=== PATIENT | female | born 1975 | race Caucasian/White ===

== ENCOUNTER 2018-01-17 17:28 | Emergency (ER) | payer OTHER ==
[~2018-01-17] VITALS: Ht 172.7 cm; Wt 131.5 kg
[~2018-01-17 17:28] MED LIST: JANUMET 50-5001 EACH PO; PATANOL5 ML OPHTHALMIC; PROAIR HFA8.5 GM
[2018-01-17] MEDS ORDERED: PREDNISONE 20 M20 MG PO (17:57)
[2018-01-17] MEDS ORDERED: ALBUTEROL2.5 MG/31 INH (17:57)
[2018-01-17] MEDS ORDERED: PROAIR HFA8.5 GM INH (17:57)
[2018-01-17 18:07] VITALS: BP 181/73
== END 2018-01-17 18:08 | disposition home or self-care (01) ==
LOC: M.ERS 17:28
DX: J45.909 Unspecified asthma, uncomplicated (principal); R03.0 Elevated blood-pressure reading, without diagnosis of hypertension; E11.9 Type 2 diabetes mellitus without complications; Z90.710 Acquired absence of both cervix and uterus

== ENCOUNTER 2018-01-25 14:47 | Emergency (ER) | payer OTHER ==
[~2018-01-25] VITALS: Ht 172.7 cm; Wt 131.5 kg
[~2018-01-25 14:47] MED LIST changes: +ALBUTEROL2.5 MG/31 INH; +PREDNISONE 20 M20 MG PO; +PROAIR HFA8.5 GM INH
[2018-01-25] MEDS ORDERED: PROAIR HFA8.5 GM INH (15:02)
[2018-01-25 15:18] LABS: URINE BILIRUBIN NEGATIVE (Negative); URINE BLOOD NEGATIVE (Negative); URINE CLARITY CLEAR; URINE COLOR YELLOW; URINE GLUCOSE-RANDOM NEGATIVE (Negative); URINE KETONES NEGATIVE (Negative); URINE LEUKOCYTES-REFLEX NEGATIVE (Negative); URINE NITRITE-REFLEX NEGATIVE (Negative); URINE PROTEIN NEGATIVE (Negative); URINE SPECIFIC GRAVITY >= 1.030 (1.005-1.030); URINE UROBILINOGEN 0.2 E.U./dl (0.2-1.0)
[2018-01-25 15:45] LABS: ABSOLUTE BASOPHILS 0.1 thou/uL (0.0-0.2); ABSOLUTE EOSINOPHILS 0.2 thou/uL (0.0-0.7); ABSOLUTE LYMPHOCYTES 2.6 thou/uL (0.8-5.3); ABSOLUTE MONOCYTES 0.6 thou/uL (0.0-1.2); BASOPHILS 0.9 %; EOSINOPHILS 3.2 %; HEMATOCRIT 41.5 % (37.0-47.0); HEMOGLOBIN 14.3 gm/dL (12.0-15.0); LYMPHOCYTES 34.6 %; MCH 30.4 pg (26.0-34.0); MCHC 34.4 g/dL (28.0-37.0); MCV 88.2 fL (80.0-100.0); MONOCYTES 8.1 %; MPV 8.8 fl. (7.2-11.1); NUCLEATED RBCS 0 /100WBC; PLATELET COUNT* 218 thou/uL (150-400); POLYS 53.2 %; RDW-CV 12.7 % (10.5-14.5); WBC 7.5 thou/uL (4.0-11.0)
[2018-01-25 15:52] LABS: CALCIUM 8.3 mg/dL (8.5-10.1); CREATININE 0.9 mg/dL (0.6-1.3); POTASSIUM 3.8 mmol/L (3.5-5.1)
[2018-01-25 15:57] LABS: ALBUMIN 3.1 g/dL (3.4-5.0); TOTAL BILIRUBIN 0.2 mg/dL (<0.1-1.0); TOTAL PROTEIN 6.5 g/dL (6.4-8.2)
[2018-01-25] MEDS ORDERED: CIPRO500 MG PO (16:17)
[2018-01-25] MEDS ORDERED: FLAGYL500 MG PO (16:17)
[2018-01-25 16:32] VITALS: BP 155/83
== END 2018-01-25 16:33 | disposition home or self-care (01) ==
LOC: M.ERS 14:47
PROVIDERS: Nurse Practitioner Psychiatric/Mental Health
DX: R19.7 Diarrhea, unspecified (principal); J45.909 Unspecified asthma, uncomplicated; E11.9 Type 2 diabetes mellitus without complications; F17.200 Nicotine dependence, unspecified, uncomplicated; Z90.710 Acquired absence of both cervix and uterus

== ENCOUNTER 2018-06-04 22:21 | Emergency (ER) | payer OTHER ==
[~2018-06-04] VITALS: Ht 172.7 cm; Wt 127.0 kg
[~2018-06-04 22:21] MED LIST changes: +CIPRO500 MG PO; +FLAGYL500 MG PO
[2018-06-04] MEDS ORDERED: PROAIR HFA8.5 GM INH (23:08)
[2018-06-04] MEDS ORDERED: PREDNISONE50 MG PO (23:08)
[2018-06-04 23:18] VITALS: BP 103/91
== END 2018-06-04 23:19 | disposition home or self-care (01) ==
LOC: M.ERS 22:21
DX: J45.901 Unspecified asthma with (acute) exacerbation (principal); E11.9 Type 2 diabetes mellitus without complications; Z90.710 Acquired absence of both cervix and uterus

== ENCOUNTER 2018-07-12 07:48 | Emergency (ER) | payer OTHER ==
[~2018-07-12] VITALS: Ht 172.7 cm; Wt 127.0 kg
[~2018-07-12 07:48] MED LIST changes: +PREDNISONE50 MG PO
[2018-07-12] MEDS ORDERED: ALBUTEROL2.5 MG/31 INH (08:44)
[2018-07-12] MEDS ORDERED: PREDNISONE 20 M20 M1 PO (08:44)
[2018-07-12] MEDS ORDERED: AMOXICILLIN500 M1 PO (08:44)
[2018-07-12 09:02] VITALS: BP 163/100
== END 2018-07-12 09:02 | disposition home or self-care (01) ==
LOC: M.ERS 07:48
DX: J45.901 Unspecified asthma with (acute) exacerbation (principal); E11.9 Type 2 diabetes mellitus without complications; Z90.710 Acquired absence of both cervix and uterus

== ENCOUNTER 2018-09-19 03:10 | Emergency (ER) | payer OTHER ==
[~2018-09-19] VITALS: Ht 172.7 cm; Wt 145.2 kg
[~2018-09-19 03:10] MED LIST changes: +AMOXICILLIN500 M1 PO; +PREDNISONE 20 M20 M1 PO
[2018-09-19 03:15] VITALS: BP 162/102
[2018-09-19] MEDS ORDERED: SYMBICORT80 MCG/4.1 INH (03:20)
[2018-09-19] MEDS ORDERED: JANUMET 50-5001 EACH PO (03:21)
[2018-09-19] MEDS ORDERED: LEXAPRO 10 MG T10 M1 PO (03:22)
== END 2018-09-19 03:40 | disposition home or self-care (01) ==
LOC: M.ERS 03:10
DX: J06.9 Acute upper respiratory infection, unspecified (principal); J45.909 Unspecified asthma, uncomplicated; E11.9 Type 2 diabetes mellitus without complications; Z88.8 Allergy status to other drugs, medicaments and biological substances; Z90.710 Acquired absence of both cervix and uterus

== ENCOUNTER 2018-11-16 16:52 | Emergency (ER) | payer OTHER ==
[~2018-11-16] VITALS: Ht 172.7 cm; Wt 149.7 kg
[~2018-11-16 16:52] MED LIST changes: +LEXAPRO 10 MG T10 M1 PO; +SYMBICORT80 MCG/4.1 INH
[2018-11-16 18:41] LABS: INFLUENZA A ANTIGEN None Detected (None Detect); INFLUENZA B ANTIGEN None Detected (None Detect)
[2018-11-16] MEDS ORDERED: ALBUTEROL2.5 MG/31 INH (18:55)
[2018-11-16] MEDS ORDERED: ZPAK PO (18:55)
[2018-11-16] MEDS ORDERED: TESSALON PERLE100 MG PO (18:55)
[2018-11-16] MEDS ORDERED: MEDROLDOSEPACK PO (18:55)
[2018-11-16] MEDS ORDERED: PROMETH-CODEIN 65 ML PO (18:59)
[2018-11-16 19:14] VITALS: BP 160/105
== END 2018-11-16 19:20 | disposition home or self-care (01) ==
LOC: M.ERS 16:52
PROVIDERS: Nurse Practitioner Family
DX: J20.9 Acute bronchitis, unspecified (principal); E11.9 Type 2 diabetes mellitus without complications; J45.909 Unspecified asthma, uncomplicated; Z90.49 Acquired absence of other specified parts of digestive tract; Z90.710 Acquired absence of both cervix and uterus

== ENCOUNTER 2018-11-21 14:33 | Emergency (ER) | payer OTHER ==
[~2018-11-21] VITALS: Ht 172.7 cm; Wt 149.9 kg
[~2018-11-21 14:33] MED LIST changes: +MEDROLDOSEPACK PO; +PROMETH-CODEIN 65 ML PO; +TESSALON PERLE100 MG PO; +ZPAK PO
[2018-11-21 15:11] LABS: ABSOLUTE BASOPHILS 0.1 thou/uL (0.0-0.2); ABSOLUTE LYMPHOCYTES 1.9 thou/uL (0.8-5.3); ABSOLUTE MONOCYTES 0.5 thou/uL (0.0-1.2); ABSOLUTE NEUTROPHILS 7.5 thou/uL (1.6-8.1); EOSINOPHILS 0.5 %; HEMOGLOBIN 14.5 gm/dL (12.0-15.0); LYMPHOCYTES 18.9 %; MCHC 33.8 g/dL (28.0-37.0); MCV 91.9 fL (80.0-100.0); MONOCYTES 5.2 %; MPV 8.9 fl. (7.2-11.1); NUCLEATED RBCS 0 /100WBC; PLATELET COUNT* 270 thou/uL (150-400); POLYS 74.4 %; RBC 4.68 mil/uL (4.20-5.00); RDW-CV 12.7 % (10.5-14.5); WBC 10.1 thou/uL (4.0-11.0)
[2018-11-21 15:16] LABS: CALCIUM 8.9 mg/dL (8.5-10.1); CREATININE 1.1 mg/dL (0.6-1.3)
[2018-11-21 15:21] LABS: ALBUMIN 3.5 g/dL (3.4-5.0); TOTAL BILIRUBIN 0.3 mg/dL (<0.1-1.0); TOTAL PROTEIN 7.5 g/dL (6.4-8.2)
[2018-11-21 16:53] VITALS: BP 134/76
== END 2018-11-21 16:54 | disposition home or self-care (01) ==
LOC: M.ERS 14:33
PROVIDERS: Physician Assistant
DX: E11.65 Type 2 diabetes mellitus with hyperglycemia (principal); J02.9 Acute pharyngitis, unspecified; R06.02 Shortness of breath; J45.909 Unspecified asthma, uncomplicated; Z90.710 Acquired absence of both cervix and uterus; Z90.49 Acquired absence of other specified parts of digestive tract

== ENCOUNTER 2018-12-22 13:09 | Inpatient (IN) | payer OTHER ==
[~2018-12-22] VITALS: Ht 172.7 cm; Wt 149.7 kg
[2018-12-22 13:19] VITALS: BP 184/107
[2018-12-22 14:05] LABS: ABSOLUTE BASOPHILS 0.1 thou/uL (0.0-0.2); ABSOLUTE EOSINOPHILS 0.2 thou/uL (0.0-0.7); ABSOLUTE LYMPHOCYTES 2.7 thou/uL (0.8-5.3); ABSOLUTE MONOCYTES 0.6 thou/uL (0.0-1.2); ABSOLUTE NEUTROPHILS 4.5 thou/uL (1.6-8.1); EOSINOPHILS 1.9 %; LYMPHOCYTES 33.4 %; MCH 31.2 pg (26.0-34.0); MCHC 34.1 g/dL (28.0-37.0); MCV 91.4 fL (80.0-100.0); MONOCYTES 7.8 %; MPV 9.2 fl. (7.2-11.1); NUCLEATED RBCS 0 /100WBC; PLATELET COUNT* 246 thou/uL (150-400); POLYS 55.9 %; RBC 4.49 mil/uL (4.20-5.00); RDW-CV 12.8 % (10.5-14.5); WBC 8.1 thou/uL (4.0-11.0)
[2018-12-22 14:11] LABS: CALCIUM 8.8 mg/dL (8.5-10.1); POTASSIUM 3.7 mmol/L (3.5-5.1)
[2018-12-22 14:16] LABS: ALBUMIN 3.4 g/dL (3.4-5.0); TOTAL BILIRUBIN 0.2 mg/dL (<0.1-1.0)
[2018-12-22 15:36] VITALS: BP 149/78
[2018-12-22 15:47] VITALS: BP 157/87
[2018-12-22 20:45] VITALS: BP 129/47
[2018-12-23 04:13] LABS: HEMATOCRIT 40.2 % (37.0-47.0); HEMOGLOBIN 13.4 gm/dL (12.0-15.0); MCHC 33.3 g/dL (28.0-37.0); MCV 92.9 fL (80.0-100.0); MPV 9.1 fl. (7.2-11.1); RBC 4.33 mil/uL (4.20-5.00); RDW-CV 12.7 % (10.5-14.5); WBC 10.4 thou/uL (4.0-11.0)
[2018-12-23 04:23] LABS: CALCIUM 8.9 mg/dL (8.5-10.1); CREATININE 1.1 mg/dL (0.6-1.3)
[2018-12-23 04:24] LABS: POTASSIUM 4.7 mmol/L (3.5-5.1)
[2018-12-23 07:20] VITALS: BP 148/82
[2018-12-23 16:00] VITALS: BP 124/72
[2018-12-23 20:00] VITALS: BP 110/48
[2018-12-24 09:42] VITALS: BP 137/56
[2018-12-24] MEDS ORDERED: PREDNISONE 10 M10 MG PO (10:38)
[2018-12-24] MEDS ORDERED: SINGULAIR 10 MG10 M1 PO (10:39)
[2018-12-24] MEDS ORDERED: METFORMIN HCL500 MG PO (10:40)
[2018-12-24 10:41] VITALS: BP 137/56
[2018-12-24 11:38] VITALS: BP 137/56
== END 2018-12-24 11:36 | disposition home or self-care (01) | DRG 202 ==
LOC: M.ERS 13:09 → M.3W 15:06 → M.TBA-ER 15:06 → M.3W 15:46
PROVIDERS: Physician Assistant; ADMIT Internal Medicine
DX: J45.901 Unspecified asthma with (acute) exacerbation (principal); E87.1 Hypo-osmolality and hyponatremia; Z68.43 Body mass index [BMI] 50.0-59.9, adult; E66.01 Morbid (severe) obesity due to excess calories; E11.9 Type 2 diabetes mellitus without complications; Z90.710 Acquired absence of both cervix and uterus; Z90.49 Acquired absence of other specified parts of digestive tract; Z79.4 Long term (current) use of insulin; Z79.899 Other long term (current) drug therapy; Z83.3 Family history of diabetes mellitus; Z82.5 Family history of asthma and other chronic lower respiratory diseases; Z80.41 Family history of malignant neoplasm of ovary; Z87.891 Personal history of nicotine dependence

== ENCOUNTER 2019-01-15 10:13 | Emergency (ER) | payer OTHER ==
[~2019-01-15] VITALS: Ht 172.7 cm; Wt 149.7 kg
[~2019-01-15 10:13] MED LIST changes: +METFORMIN HCL500 MG PO; +PREDNISONE 10 M10 MG PO; +SINGULAIR 10 MG10 M1 PO
[2019-01-15] MEDS ORDERED: SPIRIVA INH (10:24)
[2019-01-15 11:23] LABS: ABSOLUTE BASOPHILS 0.1 thou/uL (0.0-0.2); ABSOLUTE EOSINOPHILS 0.1 thou/uL (0.0-0.7); ABSOLUTE LYMPHOCYTES 3.5 thou/uL (0.8-5.3); ABSOLUTE MONOCYTES 0.5 thou/uL (0.0-1.2); ABSOLUTE NEUTROPHILS 4.5 thou/uL (1.6-8.1); BASOPHILS 1.2 %; HEMATOCRIT 41.2 % (37.0-47.0); HEMOGLOBIN 14.1 gm/dL (12.0-15.0); LYMPHOCYTES 40.4 %; MCH 30.9 pg (26.0-34.0); MCHC 34.3 g/dL (28.0-37.0); MCV 90.1 fL (80.0-100.0); MONOCYTES 6.1 %; NUCLEATED RBCS 0 /100WBC; PLATELET COUNT* 251 thou/uL (150-400); POLYS 51.3 %; RBC 4.57 mil/uL (4.20-5.00); RDW-CV 12.8 % (10.5-14.5); WBC 8.7 thou/uL (4.0-11.0)
[2019-01-15 11:45] LABS: ALBUMIN 3.3 g/dL (3.4-5.0); CALCIUM 8.8 mg/dL (8.5-10.1); CREATININE 1.1 mg/dL (0.6-1.3); POTASSIUM 3.4 mmol/L (3.5-5.1); TOTAL BILIRUBIN 0.4 mg/dL (<0.1-1.0); TOTAL PROTEIN 6.9 g/dL (6.4-8.2)
[2019-01-15] MEDS ORDERED: PREDNISONE 10 M10 MG PO (12:07)
[2019-01-15 12:18] VITALS: BP 159/100
== END 2019-01-15 12:19 | disposition home or self-care (01) ==
LOC: M.ERS 10:13
PROVIDERS: Physician Assistant
DX: J45.901 Unspecified asthma with (acute) exacerbation (principal); E11.9 Type 2 diabetes mellitus without complications; F32.9 Major depressive disorder, single episode, unspecified; Z90.49 Acquired absence of other specified parts of digestive tract; Z90.710 Acquired absence of both cervix and uterus

== ENCOUNTER 2019-02-07 10:45 | Emergency (ER) | payer OTHER ==
[~2019-02-07] VITALS: Ht 172.7 cm; Wt 149.7 kg
[~2019-02-07 10:45] MED LIST changes: +SPIRIVA INH
[2019-02-07 11:24] LABS: ABSOLUTE BASOPHILS 0.1 thou/uL (0.0-0.2); ABSOLUTE EOSINOPHILS 0.1 thou/uL (0.0-0.7); ABSOLUTE LYMPHOCYTES 2.5 thou/uL (0.8-5.3); ABSOLUTE MONOCYTES 0.4 thou/uL (0.0-1.2); ABSOLUTE NEUTROPHILS 2.6 thou/uL (1.6-8.1); BASOPHILS 1.1 %; EOSINOPHILS 1.8 %; HEMATOCRIT 43.9 % (37.0-47.0); HEMOGLOBIN 14.5 gm/dL (12.0-15.0); LYMPHOCYTES 43.7 %; MCH 30.1 pg (26.0-34.0); MCHC 32.9 g/dL (28.0-37.0); MCV 91.4 fL (80.0-100.0); MONOCYTES 7.3 %; MPV 8.8 fl. (7.2-11.1); NUCLEATED RBCS 0 /100WBC; PLATELET COUNT* 244 thou/uL (150-400); POLYS 46.1 %; RDW-CV 13.5 % (10.5-14.5); WBC 5.6 thou/uL (4.0-11.0)
[2019-02-07 11:37] LABS: ANION GAP 10 mmol/L (7-16); BUN 15 mg/dL (7-18); CALCIUM 8.7 mg/dL (8.5-10.1); CHLORIDE 99 mmol/L (98-107); CO2 27 mmol/L (21-32); CREATININE 1.2 mg/dL (0.6-1.3); GLUCOSE 335 mg/dL (70-99); POTASSIUM 4.2 mmol/L (3.5-5.1); SODIUM 136 mmol/L (136-145); TROPONIN-I LEVEL <0.06 ng/mL (<0.06)
[2019-02-07 11:39] LABS: ALBUMIN 3.4 g/dL (3.4-5.0); ALKALINE PHOSPHATASE 76 U/L (46-116); SGOT 29 U/L (15-37); SGPT 80 U/L (30-65); TOTAL BILIRUBIN 0.4 mg/dL (<0.1-1.0)
[2019-02-07] MEDS ORDERED: IPRAT-ALBUT 0.5-3 ML INH (12:21)
[2019-02-07] MEDS ORDERED: PREDNISONE 20 M20 MG PO (12:21)
[2019-02-07] MEDS ORDERED: CLARITIN10 MG PO (12:21)
[2019-02-07 13:00] VITALS: BP 149/94
== END 2019-02-07 13:13 | disposition home or self-care (01) ==
LOC: M.ERS 10:45
PROVIDERS: Physician Assistant
DX: E11.65 Type 2 diabetes mellitus with hyperglycemia (principal); J45.901 Unspecified asthma with (acute) exacerbation; F32.9 Major depressive disorder, single episode, unspecified; Z90.710 Acquired absence of both cervix and uterus; Z90.49 Acquired absence of other specified parts of digestive tract

== ENCOUNTER 2019-09-22 18:27 | Emergency (ER) | payer OTHER ==
[~2019-09-22] VITALS: Ht 170.2 cm; Wt 140.6 kg
[~2019-09-22 18:27] MED LIST changes: +CLARITIN10 MG PO; +IPRAT-ALBUT 0.5-3 ML INH; +LEXAPRO 10 MG T10 M2 PO; +VENTOLIN HFA 1818 GM INH
[2019-09-22] MEDS ORDERED: MEDROLDOSEPACK PO (19:32)
[2019-09-22] MEDS ORDERED: BENZONATATE200 MG PO (19:33)
[2019-09-22] MEDS ORDERED: AUGMENTIN 875-1 EACH PO (19:33)
[2019-09-22 19:46] VITALS: BP 163/83
== END 2019-09-22 19:47 | disposition home or self-care (01) ==
LOC: M.ERS 18:27
DX: J45.901 Unspecified asthma with (acute) exacerbation (principal); E11.9 Type 2 diabetes mellitus without complications; F32.9 Major depressive disorder, single episode, unspecified; Z90.710 Acquired absence of both cervix and uterus; J45.909 Unspecified asthma, uncomplicated; Z90.49 Acquired absence of other specified parts of digestive tract

== ENCOUNTER 2019-10-07 19:31 | Emergency (ER) | payer OTHER ==
[~2019-10-07] VITALS: Ht 170.2 cm; Wt 140.6 kg
[~2019-10-07 19:31] MED LIST changes: +AUGMENTIN 875-1 EACH PO; +BENZONATATE200 MG PO
[2019-10-07] MEDS ORDERED: SYMBICORT80 MCG/4.1 INH (19:39)
[2019-10-07] MEDS ORDERED: PREDNISONE 20 M20 M1 PO (20:11)
[2019-10-07 20:32] VITALS: BP 154/76
--- NOTE | 2019-10-10 10:41 | EKG ---
[place] [address] ELECTROCARDIOGRAM REPORT Name: LEEANN WRIGHTN Room: [facility]#: [id number] Admission: 10/07/19 Attend Phys: Discharge: 10/07/19 Date of : 79 Report #: [id number] THIS REPORT FOR: //name// [facility] ED Test Date: 2019-10-07 Test Time: 19:43:31 Pat Name: LEEANN WRIGHT Department: Room: Gender: F Lacing Cutter: CANDIS : 1975 Requested By: [place] Buck Order Number: [id number] MD: Jayden Bourne Measurements Intervals [place] Rate: 92 P: 54 RI: 179 QRS: 51 QRSD: 83 T: 51 QT: 331 QTc: 410 Interpretive Statements Sinus rhythm No previous ECG available for comparison Electronically Signed On 10-10-2019 10:41:18 [employer] by Jayden Bourne [email or web address] <ELECTRONICALLY SIGNED> By: Jayden Bourne MD, [facility] 10/10/19 1041 1943 42 Jayden Bourne MD, FACC /EPI
== END 2019-10-07 20:33 | disposition home or self-care (01) ==
LOC: M.ERS 19:31
DX: J45.901 Unspecified asthma with (acute) exacerbation (principal); R51 Headache; E11.9 Type 2 diabetes mellitus without complications; F32.9 Major depressive disorder, single episode, unspecified; Z90.49 Acquired absence of other specified parts of digestive tract; Z90.710 Acquired absence of both cervix and uterus

== ENCOUNTER 2020-01-17 09:41 | Emergency (ER) | payer BC ==
[~2020-01-17] VITALS: Ht 172.7 cm; Wt 144.2 kg
[2020-01-17] MEDS ORDERED: AMOXICILLIN 50500 MG PO (10:27)
[2020-01-17 10:31] VITALS: BP 130/72
== END 2020-01-17 10:32 | disposition home or self-care (01) ==
LOC: M.ERS 09:41
DX: J32.9 Chronic sinusitis, unspecified (principal); E11.9 Type 2 diabetes mellitus without complications; J45.909 Unspecified asthma, uncomplicated; F32.9 Major depressive disorder, single episode, unspecified; Z90.49 Acquired absence of other specified parts of digestive tract; Z90.710 Acquired absence of both cervix and uterus

== ENCOUNTER 2021-06-19 06:33 | Emergency (ER) | payer OTHER ==
[~2021-06-19] VITALS: Ht 172.7 cm; Wt 151.5 kg
[~2021-06-19 06:33] MED LIST changes: +AMOXICILLIN 50500 MG PO
[2021-06-19] MEDS ORDERED: LANTUS SUBQ (06:49)
[2021-06-19] MEDS ORDERED: AMARYL4 MG PO (06:49)
[2021-06-19] MEDS ORDERED: GLUMETZA1000 PO (06:49)
[2021-06-19] MEDS ORDERED: PREDNISONE50 MG PO (07:43)
[2021-06-19 08:44] VITALS: BP 142/98
== END 2021-06-19 08:45 | disposition home or self-care (01) ==
LOC: M.ERS 06:33
DX: J06.9 Acute upper respiratory infection, unspecified (principal); Z20.822 Contact with and (suspected) exposure to COVID-19; J45.909 Unspecified asthma, uncomplicated; E11.9 Type 2 diabetes mellitus without complications; Z79.899 Other long term (current) drug therapy; Z90.710 Acquired absence of both cervix and uterus; Z90.49 Acquired absence of other specified parts of digestive tract

== ENCOUNTER 2021-07-10 12:21 | Emergency (ER) | payer OTHER ==
[~2021-07-10] VITALS: Ht 172.7 cm; Wt 145.2 kg
[~2021-07-10 12:21] MED LIST changes: +AMARYL4 MG PO; +GLUMETZA1000 PO; +LANTUS SUBQ
[2021-07-10] MEDS ORDERED: LOVENOX40 MG/0.4 SUBQ (12:34)
[2021-07-10] MEDS ORDERED: OXYCODONE HCL5 MG PO (12:34)
[2021-07-10] MEDS ORDERED: ONDANSETRON ODT4 MG PO (12:34)
[2021-07-10] MEDS ORDERED: PROTONIX40 M2 PO (12:34)
[2021-07-10 13:07] LABS: ABSOLUTE BASOPHILS 0.1 thou/uL (0.0-0.2); ABSOLUTE EOSINOPHILS 0.2 thou/uL (0.0-0.7); ABSOLUTE LYMPHOCYTES 2.3 thou/uL (0.8-5.3); ABSOLUTE MONOCYTES 0.7 thou/uL (0.0-1.2); ABSOLUTE NEUTROPHILS 4.5 thou/uL (1.6-8.1); BASOPHILS 0.9 %; EOSINOPHILS 2.3 %; HEMATOCRIT 40.7 % (37.0-47.0); HEMOGLOBIN 13.8 gm/dL (12.0-15.0); LYMPHOCYTES 29.5 %; MCH 30.5 pg (26.0-34.0); MCV 89.9 fL (80.0-100.0); MONOCYTES 8.9 %; MPV 8.4 fl. (7.2-11.1); NUCLEATED RBCS 0 /100WBC; PLATELET COUNT* 267 thou/uL (150-400); POLYS 58.4 %; RBC 4.52 mil/uL (4.20-5.00); RDW-CV 13.2 % (10.5-14.5); WBC 7.8 thou/uL (4.0-11.0)
[2021-07-10 13:17] LABS: CALCIUM 8.5 mg/dL (8.5-10.1); CREATININE 0.8 mg/dL (0.6-1.3); POTASSIUM 3.7 mmol/L (3.5-5.1)
[2021-07-10 13:22] LABS: ALBUMIN 3.3 g/dL (3.4-5.0); TOTAL BILIRUBIN 0.6 mg/dL (<0.1-1.0); TOTAL PROTEIN 7.3 g/dL (6.4-8.2)
[2021-07-10 14:14] LABS: URINE BILIRUBIN NEGATIVE (Negative); URINE BLOOD NEGATIVE (Negative); URINE CLARITY CLEAR; URINE COLOR YELLOW; URINE GLUCOSE-RANDOM NEGATIVE (Negative); URINE LEUKOCYTES-REFLEX NEGATIVE (Negative); URINE NITRITE-REFLEX NEGATIVE (Negative); URINE PROTEIN NEGATIVE (Negative); URINE SPECIFIC GRAVITY <= 1.005 (1.005-1.030); URINE UROBILINOGEN 0.2 E.U./dl (0.2-1.0)
[2021-07-10 14:18] LABS: URINE KETONES 3+ (Negative)
[2021-07-10 14:19] LABS: ACETEST (KETONE CONFIRMATORY) Negative (Negative)
[2021-07-10 16:26] VITALS: BP 130/76
== END 2021-07-10 16:27 | disposition home or self-care (01) ==
LOC: M.ERS 12:21
PROVIDERS: Nurse Practitioner Family
DX: K59.00 Constipation, unspecified (principal); J45.909 Unspecified asthma, uncomplicated; E11.9 Type 2 diabetes mellitus without complications; Z90.49 Acquired absence of other specified parts of digestive tract; Z90.710 Acquired absence of both cervix and uterus; Z91.048 Other nonmedicinal substance allergy status